=== PATIENT | male | born 1975 | race Caucasian/White ===

== ENCOUNTER 2018-04-02 15:39 | Outpatient (CLI) | payer BC ==
--- NOTE | 2018-04-03 12:15 | MRI ---
BRAIN MRI WITH AND WITHOUT CONTRAST: 04/03/2018 HISTORY: Head pressure, when coughing or sneezing, for two years. COMPARISON: None. TECHNIQUE: Multiplanar, multisequence MR imaging of the brain is provided with and without contrast. FINDINGS: The diffusion-weighted imaging demonstrates no evidence for acute infarction. The axial gradient echo imaging demonstrates no evidence for intracranial hemorrhage. There is a focal area of abnormal signal intensity within the deep and periventricular white matter, adjacent to the body of the left lateral ventricle, just superior to the basal ganglia on the left. There are lobulated components of this abnormality medially, which follow CSF signal intensity on all pulse sequences. However, along the superior and lateral margin, there is a halo of increased T2 an d increased FLAIR signal. On the post contrast T1 weighted imaging, there is no enhancement of this abnormality. There is no associated mass effect. This focal area of abnormal signal intensity measu res at least 1.9 cm in AP dimension, 1.4 cm in transverse dimension, and approximately 1.4 cm in cran iocaudal dimension. The imaged paranasal sinuses and mastoid air cells appear grossly unremarkable. The orbits and globe s appear unremarkable as well. The arterial flow voids, at the axial level of the skull base, appear unremarkable on the T2 weighted imaging. The whole brain post contrast imaging demonstrates no abnormal enhancement within the brai n parenchyma. IMPRESSION: Focal nonspecific area of signal abnormality within the deep and periventricular white matter, on the left, as detailed above. This may represent a focal area of clustered prominent Virchow-Tramaine space s with adjacent gliosis; however, a mass lesion on the basis of FLA[employer] neoplasm is a possibility. Recom mend close follow-up imaging via brain MRI in three months. SASKIA Rosas
== END 2018-04-02 15:40 | disposition home or self-care (01) ==
LOC: SCSMRI 15:39
PROVIDERS: ATTEND Family Medicine
DX: R51 Headache (principal); H53.9 Unspecified visual disturbance; G93.89 Other specified disorders of brain
CPT/HCPCS: 70553

== ENCOUNTER 2018-07-09 15:05 | Outpatient (CLI) | payer BC ==
--- NOTE | 2018-07-09 17:13 | MRI ---
MRI BRAIN WITH AND WITHOUT CONTRAST: 07/09/2018 HISTORY: Brain lab study. COMPARISON: MRI from 04/02/2018. TECHNIQUE: The patient received 14 mL of MultiHance given IV. FINDINGS: Multiplanar, multisequence pre and post contrast enhanced MRI images of the brain demonstrate, again, an area of moderately well circumscribed density in the left upper basal ganglion, measuring 1.7 x 1 .4 cm. This lesion has areas of abnormal T2 signal, with an area of fluid density within it. 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 No evidence of enhancement se en on the contrast enhanced images. MRI appearance is stable and unchanged since the previous compar merlin exam. No evidence of significant diffusion restriction seen. The rest of the brain is unremarkable. IMPRESSION: Stable left intracranial mass. POS: PAWEL
== END 2018-07-09 15:06 | disposition home or self-care (01) ==
LOC: TBSIIMAG 15:05 → SCSMRI 15:06
PROVIDERS: ATTEND Neurological Surgery
DX: G93.9 Disorder of brain, unspecified (principal); R22.0 Localized swelling, mass and lump, head
CPT/HCPCS: 70553

== ENCOUNTER 2019-02-12 08:30 | Outpatient (CLI) | payer BC ==
--- NOTE | 2019-02-12 10:07 | MRI ---
Brain MRI with and without contrast: 02/12/2019 COMPARISON: 07/09/2018 HISTORY: Reevaluate nonspecific lesion within the left cerebral hemisphere TECHNIQUE: Multiplanar multisequence MR imaging of the brain is obtained with and without contrast FINDINGS: The diffusion weighted imaging demonstrates no evidence for acute infarction. The axial gradient echo imaging demonstrates no evidence for intracranial hemorrhage. There are a few stable scattered foci of increased T2 and FLAIR signal within the periventricular and deep white matter. There is a nonspecific lesion within the deep/periventricular white matter just superior to the basal ganglia on the left. The medial inferior aspect of this lesion demonstrates tiny rounded foci of abnormal signal intensity which follow CSF on all provided sequences. Along the superior lateral nia in of this lesion there is a component of decreased T1 and isointense T2 signal. No abnormal enhancement of this lesion is appreciated. When measured on FLAIR imaging, this lesion measures approximately 1.6 cm in AP dimension and 1.5 cm in transverse dimension, unchanged when compared to the 07/09/2018 examination. It is also unchanged when compared to the 04/02/2018 examination. The imaged paranasal sinuses/mastoid air cells demonstrate normal signal intensity. Arterial flow voids at the axial level of the skull base appear unremarkable on the T2-weighted imagi ng. IMPRESSION: Stable left intra-axial lesion as detailed above. 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
== END 2019-02-12 08:31 | disposition home or self-care (01) ==
LOC: TBSIIMAG 08:30
PROVIDERS: ATTEND Neurological Surgery
DX: D49.6 Neoplasm of unspecified behavior of brain (principal); G93.89 Other specified disorders of brain
CPT/HCPCS: 70553